=== PATIENT | female | born 1995 | race Two or more races ===

== ENCOUNTER 2019-10-24 21:30 | Emergency (ER) | payer BC ==
[~2019-10-24] VITALS: Ht 165.1 cm; Wt 77.0 kg
[2019-10-25] MEDS ORDERED: TETANUS, DIPHTHERIA, PERTUSSIS VAC/PF 0.5ML (>7YR OLD) IM ONE (00:15)
[2019-10-25 00:20] VITALS: BP 119/79
== END 2019-10-25 00:28 | disposition home or self-care (01) ==
LOC: ER 21:30
DX: S09.90XA Unspecified injury of head, initial encounter (principal); S00.511A Abrasion of lip, initial encounter; Z88.0 Allergy status to penicillin; Y04.0XXA Assault by unarmed brawl or fight, initial encounter; Y93.89 Activity, other specified; Y92.89 Other specified places as the place of occurrence of the external cause; Y99.8 Other external cause status
CPT/HCPCS: 90471; 90715; 99283

== ENCOUNTER 2023-12-04 11:54 | Emergency (ER) | payer BC, MEDICAID ==
[~2023-12-04] VITALS: Ht 162.6 cm; Wt 66.0 kg
[2023-12-04 12:07] VITALS: O2SAT 100
[2023-12-04] MEDS ORDERED: IBUPROFEN 600MG TABLET PO STA (12:56)
[2023-12-04 18:54] VITALS: BP 133/80; PULSE 79; RESP 19; TEMP 98.9
== END 2023-12-04 18:55 | disposition home or self-care (01) ==
LOC: ER 11:54
DX: R55 Syncope and collapse (principal); J45.909 Unspecified asthma, uncomplicated; Z88.0 Allergy status to penicillin; Z86.39 Personal history of other endocrine, nutritional and metabolic disease; Z90.49 Acquired absence of other specified parts of digestive tract
CPT/HCPCS: 81025; 93005; 99283